=== PATIENT | male | born 1945 | race Caucasian/White ===

== ENCOUNTER 2017-04-21 09:27 | Emergency (ER) | payer MEDICARE, BC ==
[2017-04-21 09:45] VITALS: BP 153/107
[2017-04-21] MEDS ORDERED: Adenosine 6 MG/2 ML SDV IVPUSH ONE (10:34)
[2017-04-21] MEDS ORDERED: Sodium Chloride 0.9% 1,000 ML IV ONE (10:35)
[2017-04-21] MEDS ORDERED: Sodium Chloride 0.9% 10 ML Syringe FLUSH PRN (10:35)
--- NOTE | 2017-04-21 11:28 | EDM.PDOCBH ---
ED HPI GENERAL MEDICAL PROBLEM - General Chief Complaint: Behavioral/Psych Stated Complaint: MENTAL RELAPSE Time Seen by Provider: 04/21/17 10:13 Source of Information: Reports: Patient, Family, Old Records, RN Notes Reviewed History Limitations: Reports: No Limitations - History of Present Illness INITIAL COMMENTS - FREE TEXT/NARRATIVE: 72-year-old gentleman presents emergency department day "I am unable to function ", he has a known history of major depression disorder with delusional component , he has been under the care of psychiatric treatment in [facility] Dr. Saldivar, has been on medications of lorazepam, Abilify and Effexor, about 2 months ago he states he did not like the way the medication was making him feel he felt foggy all the time sedated however he was able to function decided to cancel his follow-up appointment with psychiatry and stop his medications abruptly. Initially he felt fine was able to function did well and now he's been on a continued decline he is severely depressed he is starting to have delusions to the point where it's interfering with the family business denies any suicidal ideation or homicidal - Related Data Allergies Allergy/AdvReac Type Severity Reaction Status Date / Time No Known Allergies Allergy Verified 04/21/17 09:55 Home Meds: Home Meds NK [No Known Home Meds] 04/21/17 [History] Past Medical History HEENT History: Reports: Impaired Vision Cardiovascular History: Reports: Hypertension Musculoskeletal History: Reports: Arthritis Psychiatric History: Reports: Anxiety, Depression (With delusional component) - Infectious Disease History Infectious Disease History: Reports: Chicken Pox Social & Family History - Tobacco Use Smoking Status *Q: Unknown Ever Smoked - Caffeine Use Caffeine Use: Reports: None - Recreational Drug Use Recreational Drug Use: No ED ROS GENERAL - Review of Systems Review Of Systems: See Below Constitutional: Reports: No Symptoms HEENT: Reports: No Symptoms Respiratory: Reports: No Symptoms Cardiovascular: Reports: No Symptoms GI/Abdominal: Reports: No Symptoms Psychiatric: Reports: Agitation, Anxiety, Depression. Denies: Hallucinations, Suicidal Ideation ED EXAM, BEHAVIORAL HEALTH - Physical Exam Exam: See Below Text/Narrative:: Orientated to person place and time, appropriately dressed, well groomed, memory to recent and remote events intact, poor attention and concentration, speech is of adequate rate depressed tone and volume, good fund of knowledge, language is appropriate, Mood and affect are depressed, no pressured thoughts, denies suicidal ideation, denies homicidal ideation, no hallucinations visual or auditory, poor judgment, poor insight Exam Limited By: No Limitations General Appearance: Alert, WD/WN, No Apparent Distress Respiratory/Chest: No Respiratory Distress COURSE, BEHAVIORAL HEALTH COMP - Course Vital Signs: Last Vital Signs Temp 96.4 F 04/21/17 09:56 Pulse 83 04/21/17 09:56 Resp 16 04/21/17 09:56 BP 153/107 H 04/21/17 09:56 Pulse Ox 98 04/21/17 09:56 Orders, Labs, Meds: Active Orders 24 hr Category Date Time Status Cardiac Monitoring [RC] .As Directed Care 04/21/17 10:35 Inactive EKG Documentation Completion [RC] ASDIRECTED Care 04/21/17 10:34 Inactive EKG Documentation Completion [RC] ASDIRECTED Care 04/21/17 10:35 Inactive Peripheral IV Care [RC] . DIRECTED Care 04/21/17 10:36 Inactive EKG 12 Lead [EK] Stat Ther 04/21/17 10:34 Stop Req EKG 12 Lead [EK] Stat Ther 04/21/17 10:35 Stop Req Laboratory Tests 04/21/17 04/21/17 04/21/17 Range/Units 11:34 11:34 11:34 WBC 5.8 (4.5-11.0) K/uL RBC 5.06 (4.30-5.90) M/uL Hgb 15.3 H (12.0-15.0) g/dL Hct 45.5 (40.0-54.0) % MCV 90 (80-98) fL MCH 30 (27-31) pg MCHC 34 (32-36) % Plt Count 220 (150-400) K/uL Neut % (Auto) 77 H (36-66) % Lymph % (Auto) 14 L (24-44) % Crook % (Auto) 9 H (2-6) % Eos % (Auto) 1 L (2-4) % Baso % (Auto) 0 (0-1) % Sodium 142 (140-148) mmol/L Potassium 4.0 (3.6-5.2) mmol/L Chloride 104 (100-108) mmol/L Carbon Dioxide 32 (21-32) mmol/L Anion Gap 6.3 (5.0-14.0) mmol/L BUN 16 (7-18) mg/dL Creatinine 1.2 (0.8-1.3) mg/dL Est Cr Clr Drug Dosing 54.63 mL/min Estimated GFR (MDRD) 60 (>60) Glucose 118 H (74-106) mg/dL Calcium 9.0 (8.5-10.1) mg/dL Total Bilirubin 0.7 (0.2-1.0) mg/dL AST 20 (15-37) U/L ALT 25 (12-78) U/L Alkaline Phosphatase 48 (46-116) U/L Total Protein 7.5 (6.4-8.2) g/dL Albumin 3.9 (3.4-5.0) g/dL Globulin 3.6 H (2.3-3.5) g/dL Albumin/Globulin Ratio 1.1 L (1.2-2.2) TSH, Ultra Sensitive 1.559 (0.358-3.740) uIU/mL Urine Color Urine Appearance Urine pH (4.5-8.0) Ur Specific [place] (1.008-1.030) Urine Protein (NEGATIVE) mg/dL Urine Glucose (UA) (NEGATIVE) mg/dL Urine Ketones (NEGATIVE) mg/dL Urine Occult Blood (NEGATIVE) Urine Nitrite (NEGAITVE) Urine Bilirubin (NEGATIVE) Urine Urobilinogen (NORMAL) mg/dL Ur Leukocyte Esterase (NEGATIVE) Urine RBC (0-5) Urine WBC (0-5) Ur Epithelial Cells Amorphous Sediment Urine Bacteria Urine Mucus Urine Opiates Screen (NEGATIVE) Ur Oxycodone Screen (NEGATIVE) Urine Methadone Screen (NEGATIVE) Ur Propoxyphene Screen (NEGATIVE) Ur Barbiturates Screen (NEGATIVE) Ur Tricyclics Screen (NEGATIVE) Ur Phencyclidine Scrn (NEGATIVE) Ur Amphetamine Screen (NEGATIVE) U Methamphetamines Scrn (NEGATIVE) Urine MDMA Screen (NEGATIVE) U Benzodiazepines Scrn (NEGATIVE) U Cocaine Metab Screen (NEGATIVE) U Marijuana (THC) Screen (NEGATIVE) 04/21/17 04/21/17 Range/Units 11:55 11:55 WBC (4.5-11.0) K/uL RBC (4.30-5.90) M/uL Hgb (12.0-15.0) g/dL Hct (40.0-54.0) % MCV (80-98) fL MCH (27-31) pg MCHC (32-36) % Plt Count (150-400) K/uL Neut % (Auto) (36-66) % Lymph % (Auto) (24-44) % Crook % (Auto) (2-6) % Eos % (Auto) (2-4) % Baso % (Auto) (0-1) % Sodium (140-148) mmol/L Potassium (3.6-5.2) mmol/L Chloride (100-108) mmol/L Carbon Dioxide (21-32) mmol/L Anion Gap (5.0-14.0) mmol/L BUN (7-18) mg/dL Creatinine (0.8-1.3) mg/dL Est Cr Clr Drug Dosing mL/min Estimated GFR (MDRD) (>60) Glucose (74-106) mg/dL Calcium (8.5-10.1) mg/dL Total Bilirubin (0.2-1.0) mg/dL AST (15-37) U/L ALT (12-78) U/L Alkaline Phosphatase (46-116) U/L Total Protein (6.4-8.2) g/dL Albumin (3.4-5.0) g/dL Globulin (2.3-3.5) g/dL Albumin/Globulin Ratio (1.2-2.2) TSH, Ultra Sensitive (0.358-3.740) uIU/mL Urine Color Yellow Urine Appearance Slightly cloudy Urine pH 5.0 (4.5-8.0) Ur Specific [place] 1.020 (1.008-1.030) Urine Protein Negative (NEGATIVE) mg/dL Urine Glucose (UA) Normal (NEGATIVE) mg/dL Urine Ketones Negative (NEGATIVE) mg/dL Urine Occult Blood Negative (NEGATIVE) Urine Nitrite Negative (NEGAITVE) Urine Bilirubin Small (NEGATIVE) Urine Urobilinogen Normal (NORMAL) mg/dL Ur Leukocyte Esterase Negative (NEGATIVE) Urine RBC 0-5 (0-5) Urine WBC Not seen (0-5) Ur Epithelial Cells Not seen Amorphous Sediment Rare Urine Bacteria Rare Urine Mucus Many Urine Opiates Screen Negative (NEGATIVE) Ur Oxycodone Screen Negative (NEGATIVE) Urine Methadone Screen Negative (NEGATIVE) Ur Propoxyphene Screen Negative (NEGATIVE) Ur Barbiturates Screen Negative (NEGATIVE) Ur Tricyclics Screen Negative (NEGATIVE) Ur Phencyclidine Scrn Negative (NEGATIVE) Ur Amphetamine Screen Negative (NEGATIVE) U Methamphetamines Scrn Negative (NEGATIVE) Urine MDMA Screen Negative (NEGATIVE) U Benzodiazepines Scrn Negative (NEGATIVE) U Cocaine Metab Screen Negative (NEGATIVE) U Marijuana (THC) Screen Negative (NEGATIVE) Medications Discontinued Medications Generic Name Dose Route Start Last Admin Trade Name Freq PRN Reason Stop Dose Admin Adenosine 6 mg 04/21/17 10:34 Adenocard IVPUSH 04/21/17 10:35 NOW ONE Sodium Chloride 1,000 mls @ 999 mls/hr 04/21/17 10:35 Normal Saline IV 04/21/17 11:35 .BOLUS ONE Lorazepam 1 mg 04/21/17 11:34 04/21/17 11:38 Ativan PO 04/21/17 11:35 1 mg ONETIME ONE Administration Sodium Chloride 10 ml 04/21/17 10:35 Saline Flush FLUSH ASDIRECTED PRN Keep Vein Open Departure - Departure Time of Disposition: 13:13 Disposition: Home, Self-Care 01 Condition: Fair Clinical Impression: Depressive disorder - Discharge Information Referrals: Isaiah Reynolds MD [Primary Care Provider] - Forms: ED Department Discharge Additional Instructions: Please start the Effexor today 37.5 mg once per day for one week then increase to the full dose of 75 mg once a day, use the Ativan as needed for agitation up to 3 times a day please call to [facility] for follow-up appointment they would like to see you within 2 weeks, call or return to the emergency department with worsening of symptoms. - My Orders Last 24 Hours: My Active Orders 04/21/17 10:34 EKG Documentation Completion [RC] ASDIRECTED EKG 12 Lead [EK] Stat 04/21/17 10:35 Cardiac Monitoring [RC] .As Directed EKG Documentation Completion [RC] ASDIRECTED EKG 12 Lead [EK] Stat 04/21/17 10:36 Peripheral IV Care [RC] . DIRECTED - Assessment/Plan Last 24 Hours: My Active Orders 04/21/17 10:34 EKG Documentation Completion [RC] ASDIRECTED EKG 12 Lead [EK] Stat 04/21/17 10:35 Cardiac Monitoring [RC] .As Directed EKG Documentation Completion [RC] ASDIRECTED EKG 12 Lead [EK] Stat 04/21/17 10:36 Peripheral IV Care [RC] . DIRECTED Plan: Assessment Acuity = acute Site and laterality = major depression with psychotic features Etiology = unclear etiology Manifestations = delusions Location of injury = Home Lab values = CBC, CMP, thyroid, urinalysis urine drug screen all within normal limits Plan I was able to speak with one of the providers at [facility] where he usually follows recommended restarting his usual medication of Effexor 37.5 mg by mouth daily for 1 week and then increase to full dose to 75 mg daily with a follow-up at their facility within 2 weeks, I also provided him prescription of Ativan 1 mg by mouth 3 times a day when necessary total #30 tablets Patient was in agreement with the plan all questions were answered, they were instructed to return to the emergency department or call for worsening symptoms. This note was dictated using [employer] voice recognition software please call with any questions.
[2017-04-21] MEDS ORDERED: LORazepam 1 MG Tab PO ONE (11:34)
== END 2017-04-21 13:32 | disposition home or self-care (01) ==
LOC: JP.ED 09:27
DX: F32.9 Major depressive disorder, single episode, unspecified (principal); I10 Essential (primary) hypertension
CPT/HCPCS: 36415; 80053; 80305; 81001; 84443; 85025; 96361; 96374; 99284; A9270

== ENCOUNTER 2021-08-23 13:18 | Emergency (ER) | payer MEDICARE, BC ==
[2021-08-23 14:48] LABS: CORONAVIRUS COVID-19 NAA NEGATIVE (NEGATIVE)
[2021-08-23 15:51] VITALS: BP 153/96; PULSE 91
--- NOTE | 2021-08-23 16:16 | EDM.PDOC ---
ED HPI GENERAL MEDICAL PROBLEM - General Chief Complaint: General Stated Complaint: COUGH Time Seen by Provider: 08/23/21 14:20 Source of Information: Reports: Patient, Family, RN Notes Reviewed History Limitations: Reports: No Limitations - History of Present Illness INITIAL COMMENTS - FREE TEXT/NARRATIVE: 76-year-old gentleman presents emergency department today with 2 issues 1 he had a productive cough for the last 2 weeks initially had some fevers but they have resolved he does not necessarily feel short of breath the cough is lingering he is also developed some redness in his eye with thick mattering discharge both eyes are about the same seem to start in the left then spread to the right no problems with vision Bilateral Lower Chest Pain Score (Numeric/FACES): 4 - Related Data Allergies Allergy/AdvReac Type Severity Reaction Status Date / Time No Known Allergies Allergy Verified 05/01/21 10:46 Home Meds: Home Meds Venlafaxine [Effexor XR] 150 mg PO DAILY 05/01/21 [History] Past Medical History HEENT History: Reports: Impaired Vision Cardiovascular History: Reports: Hypertension Musculoskeletal History: Reports: Arthritis Psychiatric History: Reports: Anxiety, Depression - Infectious Disease History Infectious Disease History: Reports: Chicken Pox, Novel Coronavirus Social & Family History - Tobacco Use Tobacco Use Status *Q: Never Tobacco User - Caffeine Use Caffeine Use: Reports: None ED ROS GENERAL - Review of Systems Review Of Systems: See Below Constitutional: Reports: Fever HEENT: Reports: Eye Discharge. Denies: Eye Pain Respiratory: Reports: Cough, Sputum. Denies: Shortness of Breath Cardiovascular: Denies: Dyspnea on Exertion GI/Abdominal: Reports: No Symptoms ED EXAM, GENERAL - Physical Exam Exam: See Below Exam Limited By: No Limitations General Appearance: Alert, WD/WN, No Apparent Distress Eye Exam: Bilateral Eye: Conjunctival Injection, EOMI, PERRL, Other (Mattering bilaterally) Throat/Mouth: Normal Inspection, Normal Lips, Normal Teeth, Normal Gums, Normal Oropharynx, Normal Voice, No Airway Compromise Respiratory/Chest: No Respiratory Distress, Lungs Clear, Normal Breath Sounds, No Accessory Muscle Use, Chest Non-Tender Cardiovascular: Regular Rate, Rhythm, No Murmur Course - Vital Signs Last Recorded V/S: Last Vital Signs Temp 98.3 F 08/23/21 14:13 Pulse 91 08/23/21 15:50 Resp 16 08/23/21 14:13 BP 153/96 H 08/23/21 15:50 Pulse Ox 94 L 08/23/21 15:50 - Orders/Labs/Meds Orders: Active Orders 24 hr Category Date Time Status Isolation [COMM] Stat Oth 08/23/21 13:50 Ordered Labs: Laboratory Tests 08/23/21 Range/Units 14:05 Influenza Type A RNA Negative (NEGATIVE) RSV RNA (INAAT) Negative (NEGATIVE) Influenza Type B RNA Negative (NEGATIVE) SARS-CoV-2 RNA (KAROLINE) Negative (NEGATIVE) Departure - Departure Time of Disposition: 16:15 Disposition: Home, Self-Care 01 Condition: Fair Clinical Impression: Bronchitis Conjunctivitis Qualifiers: Conjunctivitis type: acute Acute conjunctivitis type: bacterial Laterality: bilateral Qualified Code(s): H10.33 - Unspecified acute conjunctivitis, bilateral - Discharge Information Instructions: Acute Bronchitis, Adult, [id number] Referrals: PCP,None [Primary Care Provider] - Additional Instructions: Take full course of antibiotics, use the Robitussin-AC as needed for cough like symptoms this medication will make you sleepy, apply the ointment to the eyes twice a day until clear or for the next 5 days, please follow-up with your primary care in the next 3 to 5 days if not better please follow-up with your eye care provider in the next 3 to 5 days if not better call or return to the emergency department worsening of symptoms Sepsis Event Note (ED) - Evaluation Sepsis Screening Result: No Definite Risk - Focused Exam Vital Signs: Vital Signs Temp Pulse Resp BP Pulse Ox 08/23/21 15:50 91 153/96 H 94 L 08/23/21 14:51 89 144/95 H 93 L 08/23/21 14:13 98.3 F 87 16 167/91 H 96 08/23/21 13:49 98.3 F 87 16 167/91 H 96 - My Orders Last 24 Hours: My Active Orders 08/23/21 13:50 Isolation [COMM] Stat - Assessment/Plan Last 24 Hours: My Active Orders 08/23/21 13:50 Isolation [COMM] Stat Plan: Assessment Acuity = acute Site and laterality = bronchitis with bilateral conjunctivitis Etiology = probable bacterial cause Manifestations = none Location of injury = Home Lab values = none Plan Elected to treat empirically prescription written for azithromycin Z-Kali per package directions, Robitussin-AC 5 mL p.o. every 4 hours as needed 120 mL bottle erythromycin ophthalmic ointment applied to the affected area twice daily x5 days follow-up with primary care in 3 to 5 days if not better This note was dictated using [employer] voice recognition software please call with any questions on syntax or grammar.
== END 2021-08-23 16:24 | disposition home or self-care (01) ==
LOC: JP.ED 13:18
DX: J40 Bronchitis, not specified as acute or chronic (principal); H10.33 Unspecified acute conjunctivitis, bilateral; Z20.822 Contact with and (suspected) exposure to COVID-19; I10 Essential (primary) hypertension; Z79.899 Other long term (current) drug therapy
CPT/HCPCS: 0241U; 99283